=== PATIENT | female | born 1965 | race Caucasian/White ===

== ENCOUNTER 2025-10-09 10:47 | Outpatient (CLI) | payer MEDICAID, SELFPAY ==
--- NOTE | 2025-10-09 11:00 | MM_ITS ---
WS: [id number] SCREENING DIGITAL BREAST TOMOSYNTHESIS MAMMOGRAM WITH CAD HISTORY: SCREENING COMPARISON: None available. Bilateral CC and MLO with tomosynthesis and synthetic mammography submitted. Computer aided detection analyzed. Breast composition: The breasts are heterogeneously dense, which may obscure small masses. Spiculated mass towards the RIGHT axillary tail is seen only on the MLO projection. Mass measures 6.8 mm and is in the posterior breast. No additional suspicious masses or findings. MM/MM [facility] tomosynthesis 15031 IMPRESSION: BI-RADS: 0 - Incomplete: Need additional imaging evaluation FOLLOW UP: Need Additional Imaging RIGHT breast: Exaggerated lateral RIGHT cc. Spot compression views (CC and MLO) . True ML. Ultrasound to follow if abnormality persists.
== END 2025-10-09 10:48 | disposition home or self-care (01) ==
LOC: MOBLMAM 10:52
PROVIDERS: PCP Emergency Medicine Emergency Medical Services; Visit Provider Emergency Medicine Emergency Medical Services
DX: Z12.31 Encounter for screening mammogram for malignant neoplasm of breast (principal); R92.333 Mammographic heterogeneous density, bilateral breasts; N63.31 Unspecified lump in axillary tail of the right breast
CPT/HCPCS: 77063; 77067